=== PATIENT | male | born 1975 | race Caucasian/White ===

== ENCOUNTER 2016-09-28 12:47 | Emergency (ER) | payer OTHER ==
[~2016-09-28] VITALS: Ht 177.8 cm; Wt 122.7 kg
[~2016-09-28 12:47] MED LIST: GABA-500 PO; GABA-502 PO; LORA1TAB PO; METH500T PO; PROP20TA5 PO
[2016-09-28 12:50] VITALS: BP 129/76; PULSE 84; RESP 16; O2SAT 96
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
[2016-09-28 13:17] LABS: BASOPHILS % (AUTO) 0.5 % (0-3); EOSINOPHILS % (AUTO) 3.9 % (0-5); Mean Corpuscular Hemoglobin 29.5 pg (27.0-35.0); Mean Corpuscular Volume 90.5 fL (81-100); NEUTROPHILS % (AUTO) 53.9 % (40-74); Platelet Count 257 bil/L (150-400)
[2016-09-28 13:36] LABS: TROPONIN T < 0.010 ug/L (0.0-0.011)
[2016-09-28 13:45] LABS: Magnesium 2.1 mg/dL (1.6-2.6)
--- NOTE | 2016-09-28 13:48 | DRSVH ---
PROCEDURE: X-RAY CHEST ONE VIEW, PORTABLE ([id number]) INDICATIONS: 40 year-old male with syncope. TECHNIQUE: One view of the chest was acquired. COMPARISON: [facility], CR, XR CHEST 1VW (PORTABLE), 03/13/2016, 16:56. [facility], CR, XR CHEST 1VW (PORTABLE), 03/07/2016, 13:12. [facility], CR, XR CHEST 1VW (POR TABLE), 01/08/2016, 10:10. FINDINGS: Surgical changes and devices: None. Lungs and pleura: No pleural effusions or pneumothorax. Lungs are clear. Mediastinum: Mediastinal contours appear normal. Heart size is normal. Bones and chest wall: No suspicious bony lesions. Overlying soft tissues appear unremarkable. IMPRESSION: No acute cardiopulmonary disease. Dictated by: Ishan Campbell M.D. on 09/28/2016 at 13:46 Approved by: Ishan Campbell M.D. on 09/28/2016 at 13:46
[2016-09-28 14:58] VITALS: BP 133/79; PULSE 73; RESP 12; O2SAT 95
== END 2016-09-28 14:50 | disposition home or self-care (01) ==
LOC: EDUNIT# 12:47 → SED 12:47 → EDBD 12:47 → SED 14:50
DX: R55 Syncope and collapse (principal)